=== PATIENT | female | born 1990 | race Caucasian/White ===

== ENCOUNTER 2016-12-23 18:19 | Emergency (ER) | payer OTHER ==
[~2016-12-23] VITALS: Ht 172.7 cm; Wt 64.9 kg
[~2016-12-23 18:19] MED LIST: ENDOCET 5-3251 EACH PO; IBUPROFEN800 MG PO; PRENATAL TABLE1 EACH PO; PROAIR HFA8.5 GM IH; VALTREX50 MG/ML PO
[2016-12-23 20:00] LABS: HEMATOCRIT 37.8 % (36.0-46.0); MCH 27.8 PG (29.0-34.0); MCHC 32.5 G/DL (30.0-36.0); MCV 85.5 FL (83-99); MEAN PLAT.VOLUME 11.6 uM^3 (9.5-12.4); PLATELET COUNT 166 K/uL (156-360); RBC DIS.WIDTH-CV 12.7 % (11.8-14.6); RBC DIS.WIDTH-SD 39.3 % (39-53); RED BLOOD COUNT 4.42 M/uL (3.80-5.20); WHITE BLOOD COUNT 6.3 K/uL (4.1-10.2)
[2016-12-23 20:10] LABS: CHLORIDE 109 mEq/L (99-109); POTASSIUM 4.2 mEq/L (3.7-5.4); SODIUM 140 mEq/L (136-147)
[2016-12-23 20:12] LABS: GLUCOSE 103 mg/dL (70-99)
[2016-12-23 20:14] LABS: ANION GAP 6 MEQ/L (2-14); TOTAL BILIRUBIN 0.2 mg/dL (0.0-1.0)
[2016-12-23 20:16] LABS: ALKALINE PHOSPHATASE 72 IU/L (3-129); GFR ESTIMATE (CALCULATED) > 59 mL/min/
[2016-12-23 20:17] LABS: UREA NITROGEN (BUN) 8 mg/dL (9-23)
[2016-12-23 20:19] LABS: ADD MIUA? YES; BILIRUBIN NEGATIVE; BLOOD SMALL; COLOR STRAW ((YELLOW)); GLUCOSE (STRIP) NEGATIVE; KETONES NEGATIVE; LEUKOCYTES TRACE; NITRITE NEGATIVE; PROTEIN (STRIP) NEGATIVE; SPECIFIC GRAVITY 1.005 (1.000-1.030); UROBILINOGEN 0.2 MG/DL (0.2-1.0)
[2016-12-23 20:22] LABS: BACTERIA RARE /HPF; EPITHELIAL CELLS RARE /HPF; MUCUS TRACE /LPF; RED BLOOD CELLS 0-5 /HPF (0-5); UCUL ADDED? NO; WHITE BLOOD CELLS 0-5 /HPF (0-5)
[2016-12-23 20:23] LABS: TROP-I INTERPRETATION NEGATIVE; TROPONIN-I < 0.01 ng/mL (0.0-0.30)
[2016-12-23 20:29] LABS: QUANTITATIVE HCG < 4.0 MIU/ML
[2016-12-23 23:24] LABS: TROP-I INTERPRETATION NEGATIVE; TROPONIN-I < 0.01 ng/mL (0.0-0.30)
[2016-12-23 23:45] VITALS: BP 118/76
== END 2016-12-23 23:46 | disposition home or self-care (01) ==
LOC: EME 18:19
PROVIDERS: Nurse Practitioner Family
DX: R10.13 Epigastric pain (principal); Z87.891 Personal history of nicotine dependence
CPT/HCPCS: 71020; 80053; 81003; 84484; 84702; 85027; 93005; 99281; 99284

== ENCOUNTER 2016-12-25 19:25 | Emergency (ER) | payer OTHER ==
[~2016-12-25] VITALS: Ht 172.7 cm; Wt 64.0 kg
[2016-12-25] MEDS ORDERED: PROTONIX40 MG PO (19:36)
[2016-12-25] MEDS ORDERED: AMOXICILLIN500 MG PO (19:36)
[2016-12-25 19:56] LABS: HEMATOCRIT 36.1 % (36.0-46.0); MCV 84.9 FL (83-99); MEAN PLAT.VOLUME 11.6 uM^3 (9.5-12.4); PLATELET COUNT 155 K/uL (156-360); RBC DIS.WIDTH-CV 12.8 % (11.8-14.6); RBC DIS.WIDTH-SD 39.9 % (39-53); RED BLOOD COUNT 4.25 M/uL (3.80-5.20)
[2016-12-25 20:20] LABS: TROP-I INTERPRETATION NEGATIVE; TROPONIN-I < 0.01 ng/mL (0.0-0.30)
[2016-12-25 20:25] LABS: D-DIMER ELISA < 150.00 ng/mLDDU (<230)
[2016-12-25 20:37] LABS: CHLORIDE 107 mEq/L (99-109); SODIUM 139 mEq/L (136-147)
[2016-12-25 20:39] LABS: GLUCOSE 92 mg/dL (70-99)
[2016-12-25 20:40] LABS: ANION GAP 9 MEQ/L (2-14)
[2016-12-25 20:43] LABS: GFR ESTIMATE (CALCULATED) > 59 mL/min/
[2016-12-25 20:44] LABS: UREA NITROGEN (BUN) 8 mg/dL (9-23)
[2016-12-25 21:13] VITALS: BP 111/65
== END 2016-12-25 21:16 | disposition home or self-care (01) ==
LOC: EME → EDBD 19:25 → EME 21:16
DX: R07.9 Chest pain, unspecified (principal); F41.9 Anxiety disorder, unspecified; K21.9 Gastro-esophageal reflux disease without esophagitis; Z87.891 Personal history of nicotine dependence
CPT/HCPCS: 80048; 84484; 85027; 85379; 93005; 99281; 99284

== ENCOUNTER 2016-12-28 09:41 | Emergency (ER) | payer OTHER ==
[~2016-12-28] VITALS: Ht 172.7 cm; Wt 61.5 kg
[~2016-12-28 09:41] MED LIST changes: +AMOXICILLIN500 MG PO; +PROTONIX40 MG PO
[2016-12-28 09:43] VITALS: BP 134/77
[2016-12-28 10:57] LABS: BASOPHIL COUNT 0.1 K/uL (0-0.1); EOSINOPHIL (%) 0.6 % (0-5); HEMATOCRIT 37.8 % (36.0-46.0); IMMATURE GRANULOCYTE (%) 0.2 % (0.0-0.7); INSTRUMENT ABS NEUTROPHIL CT 3.2 K/uL; LYMPHOCYTE COUNT 1.4 K/uL (1.0-2.8); MCH 27.7 PG (29.0-34.0); MCHC 32.3 G/DL (30.0-36.0); MCV 85.7 FL (83-99); MEAN PLAT.VOLUME 11.8 uM^3 (9.5-12.4); MONOCYTE (%) 6.4 % (3-12); MONOCYTE COUNT 0.3 K/uL (0-0.8); NEUTROPHIL (%) 63.3 % (45-76); NEUTROPHIL COUNT 3.2 K/uL (1.8-6.4); PLATELET COUNT 170 K/uL (156-360); RBC DIS.WIDTH-CV 12.8 % (11.8-14.6); RBC DIS.WIDTH-SD 39.9 % (39-53); RED BLOOD COUNT 4.41 M/uL (3.80-5.20)
[2016-12-28 11:06] LABS: CHLORIDE 108 mEq/L (99-109); POTASSIUM 3.9 mEq/L (3.7-5.4); SODIUM 141 mEq/L (136-147)
[2016-12-28 11:08] LABS: GLUCOSE 100 mg/dL (70-99)
[2016-12-28 11:09] LABS: ANION GAP 13 MEQ/L (2-14)
[2016-12-28 11:11] LABS: ALKALINE PHOSPHATASE 78 IU/L (3-129); TOTAL BILIRUBIN 0.4 mg/dL (0.0-1.0)
[2016-12-28 11:12] LABS: GFR ESTIMATE (CALCULATED) > 59 mL/min/
[2016-12-28 11:13] LABS: UREA NITROGEN (BUN) 8 mg/dL (9-23)
[2016-12-28 11:15] LABS: LIPASE 16 U/L (1.0-51.0)
[2016-12-28 11:25] LABS: QUANTITATIVE HCG < 4.0 MIU/ML
[2016-12-28] MEDS ORDERED: CLARITIN,ALAVAR10 MG PO (13:01)
[2016-12-28] MEDS ORDERED: GAVISCON ES CH1 EACH PO (13:10)
== END 2016-12-28 13:16 | disposition home or self-care (01) ==
LOC: EME 09:41
PROVIDERS: Physician Assistant
DX: K29.70 Gastritis, unspecified, without bleeding (principal); J30.2 Other seasonal allergic rhinitis; Z87.891 Personal history of nicotine dependence
CPT/HCPCS: 76705; 80053; 83690; 84702; 85025; 99281; 99284

== ENCOUNTER 2017-01-20 20:15 | Emergency (ER) | payer OTHER ==
[~2017-01-20] VITALS: Ht 172.7 cm; Wt 58.8 kg
[~2017-01-20 20:15] MED LIST changes: +CLARITIN,ALAVAR10 MG PO; +GAVISCON ES CH1 EACH PO
[2017-01-20 20:51] LABS: HEMATOCRIT 38.5 % (36.0-46.0); MCH 28.1 PG (29.0-34.0); MCHC 32.7 G/DL (30.0-36.0); MCV 85.7 FL (83-99); RBC DIS.WIDTH-SD 40.2 % (39-53); RED BLOOD COUNT 4.49 M/uL (3.80-5.20); WHITE BLOOD COUNT 6.8 K/uL (4.1-10.2)
[2017-01-20 21:00] LABS: CHLORIDE 108 mEq/L (99-109); POTASSIUM 3.9 mEq/L (3.7-5.4); SODIUM 141 mEq/L (136-147)
[2017-01-20 21:01] LABS: GLUCOSE 91 mg/dL (70-99)
[2017-01-20 21:03] LABS: ANION GAP 10 MEQ/L (2-14)
[2017-01-20 21:05] LABS: GFR ESTIMATE (CALCULATED) > 59 mL/min/
[2017-01-20 21:06] LABS: UREA NITROGEN (BUN) 4 mg/dL (9-23)
[2017-01-20 21:13] LABS: TROP-I INTERPRETATION NEGATIVE; TROPONIN-I < 0.01 ng/mL (0.0-0.30)
[2017-01-20 21:42] LABS: MEAN PLAT.VOLUME 12.3 uM^3 (9.5-12.4); PLAT.SUFFICIENCY ADEQUATE; PLATELET COUNT 179 K/uL (156-360)
[2017-01-21] MEDS ORDERED: NEXIUM 24HR20 M2 PO (00:05)
[2017-01-21 00:12] VITALS: BP 114/70
[2017-01-21] MEDS ORDERED: VENTOLIN HFA18 GM IH (00:16)
[2017-01-21] MEDS ORDERED: ZITHROMAX Z-PA250 MG PO (13:30)
[2017-01-21] MEDS ORDERED: PROVENTIL HFA6.7 GM IH (13:30)
[2017-01-25] MEDS ORDERED: NEXIUM40 MG PO (12:17)
[2017-01-25] MEDS ORDERED: NAPROSYN500 MG PO (12:17)
== END 2017-01-21 00:58 | disposition home or self-care (01) ==
LOC: EME 20:15
PROVIDERS: Physician Assistant
DX: R07.9 Chest pain, unspecified (principal); R06.02 Shortness of breath; K21.9 Gastro-esophageal reflux disease without esophagitis; F41.9 Anxiety disorder, unspecified; Z87.891 Personal history of nicotine dependence
CPT/HCPCS: 71020; 71275; 80048; 84484; 85027; 85379; 93005; 99281; 99285

== ENCOUNTER 2017-01-21 10:27 | Emergency (ER) | payer OTHER ==
[~2017-01-21] VITALS: Ht 172.7 cm; Wt 59.1 kg
[~2017-01-21 10:27] MED LIST changes: +NEXIUM 24HR20 M2 PO; +VENTOLIN HFA18 GM IH
[2017-01-21 11:19] LABS: HEMATOCRIT 37.6 % (36.0-46.0); MCH 28.3 PG (29.0-34.0); MCV 85.8 FL (83-99); MEAN PLAT.VOLUME 12.3 uM^3 (9.5-12.4); PLATELET COUNT 157 K/uL (156-360); RBC DIS.WIDTH-CV 13.1 % (11.8-14.6); RBC DIS.WIDTH-SD 40.8 % (39-53); RED BLOOD COUNT 4.38 M/uL (3.80-5.20); WHITE BLOOD COUNT 5.9 K/uL (4.1-10.2)
[2017-01-21 11:34] LABS: CHLORIDE 110 mEq/L (99-109); POTASSIUM 4.1 mEq/L (3.7-5.4); SODIUM 141 mEq/L (136-147)
[2017-01-21 11:35] LABS: GLUCOSE 91 mg/dL (70-99)
[2017-01-21 11:37] LABS: ANION GAP 8 MEQ/L (2-14)
[2017-01-21 11:39] LABS: GFR ESTIMATE (CALCULATED) > 59 mL/min/
[2017-01-21 11:40] LABS: UREA NITROGEN (BUN) 5 mg/dL (9-23)
[2017-01-21] MEDS ORDERED: PROVENTIL HFA6.7 GM IH (13:30)
[2017-01-21] MEDS ORDERED: ZITHROMAX Z-PA250 MG PO (13:30)
[2017-01-21 13:57] VITALS: BP 122/64
[2017-01-25] MEDS ORDERED: NAPROSYN500 MG PO (12:17)
[2017-01-25] MEDS ORDERED: NEXIUM40 MG PO (12:17)
== END 2017-01-21 13:58 | disposition home or self-care (01) ==
LOC: EME 10:27
DX: J40 Bronchitis, not specified as acute or chronic (principal); R07.89 Other chest pain; Z87.891 Personal history of nicotine dependence
CPT/HCPCS: 71020; 80048; 85027; 94640; 99281; 99284

== ENCOUNTER 2017-01-23 09:46 | Emergency (ER) | payer OTHER ==
[~2017-01-23] VITALS: Ht 172.7 cm; Wt 58.5 kg
[~2017-01-23 09:46] MED LIST changes: +PROVENTIL HFA6.7 GM IH; +ZITHROMAX Z-PA250 MG PO
[2017-01-23] MEDS ORDERED: FLEXERIL10 MG PO (12:02)
[2017-01-23] MEDS ORDERED: NAPROSYN500 MG PO (12:02)
[2017-01-23 12:31] VITALS: BP 106/59
[2017-01-25] MEDS ORDERED: NEXIUM40 MG PO (12:17)
[2017-01-25] MEDS ORDERED: NAPROSYN500 MG PO (12:17)
== END 2017-01-23 12:32 | disposition home or self-care (01) ==
LOC: EME 09:46
DX: N64.52 Nipple discharge (principal); N64.4 Mastodynia; N63.10 Unspecified lump in the right breast, unspecified quadrant; J40 Bronchitis, not specified as acute or chronic; R11.0 Nausea; Z87.891 Personal history of nicotine dependence
CPT/HCPCS: 99281; 99284

== ENCOUNTER 2017-01-27 18:58 | Emergency (ER) | payer OTHER ==
[~2017-01-27] VITALS: Ht 172.7 cm; Wt 58.2 kg
[~2017-01-27 18:58] MED LIST changes: +FLEXERIL10 MG PO; +NAPROSYN500 MG PO; +NEXIUM40 MG PO
[2017-01-27] MEDS ORDERED: MOTRIN600 MG PO (20:33)
[2017-01-27 20:49] VITALS: BP 115/73
== END 2017-01-27 21:09 | disposition home or self-care (01) ==
LOC: EME 18:58
DX: M94.0 Chondrocostal junction syndrome [Tietze] (principal); J45.909 Unspecified asthma, uncomplicated; F41.9 Anxiety disorder, unspecified; Z87.891 Personal history of nicotine dependence
CPT/HCPCS: 71020; 99281; 99283

== ENCOUNTER 2017-02-09 17:02 | Emergency (ER) | payer OTHER ==
[~2017-02-09] VITALS: Ht 172.7 cm; Wt 57.2 kg
[~2017-02-09 17:02] MED LIST changes: +LEVAQUIN500 MG PO; +MOTRIN600 MG PO; +PANTOPRAZOLE SO40 MG PO; +PREDNISONE50 MG PO
[2017-02-09] MEDS ORDERED: TESSALON PERLE100 MG PO (17:35)
[2017-02-09 18:03] VITALS: BP 108/63
== END 2017-02-09 18:04 | disposition home or self-care (01) ==
LOC: EME 17:02
DX: R05 Cough (principal); J98.01 Acute bronchospasm; J02.9 Acute pharyngitis, unspecified; K14.6 Glossodynia; H92.09 Otalgia, unspecified ear; M54.9 Dorsalgia, unspecified; Z87.891 Personal history of nicotine dependence
CPT/HCPCS: 93005

== ENCOUNTER 2017-02-12 11:54 | Emergency (ER) | payer OTHER ==
[~2017-02-12] VITALS: Ht 172.7 cm; Wt 56.9 kg
[~2017-02-12 11:54] MED LIST changes: +TESSALON PERLE100 MG PO
[2017-02-12 12:34] LABS: BASOPHIL COUNT 0.1 K/uL (0-0.1); EOSINOPHIL (%) 0.9 % (0-5); EOSINOPHIL COUNT 0.1 K/uL (0-0.3); HEMATOCRIT 39.2 % (36.0-46.0); IMMATURE GRANULOCYTE (%) 0.1 % (0.0-0.7); INSTRUMENT ABS NEUTROPHIL CT 3.9 K/uL; LYMPHOCYTE COUNT 2.3 K/uL (1.0-2.8); MCH 27.8 PG (29.0-34.0); MCHC 32.7 G/DL (30.0-36.0); MEAN PLAT.VOLUME 11.8 uM^3 (9.5-12.4); MONOCYTE (%) 7.2 % (3-12); MONOCYTE COUNT 0.5 K/uL (0-0.8); NEUTROPHIL (%) 57.2 % (45-76); NEUTROPHIL COUNT 3.9 K/uL (1.8-6.4); PLATELET COUNT 154 K/uL (156-360); RBC DIS.WIDTH-CV 12.8 % (11.8-14.6); RBC DIS.WIDTH-SD 39.6 % (39-53); RED BLOOD COUNT 4.61 M/uL (3.80-5.20); WHITE BLOOD COUNT 6.9 K/uL (4.1-10.2)
[2017-02-12 12:42] LABS: CHLORIDE 107 mEq/L (99-109); POTASSIUM 4.3 mEq/L (3.7-5.4); SODIUM 139 mEq/L (136-147)
[2017-02-12 12:44] LABS: GLUCOSE 92 mg/dL (70-99)
[2017-02-12 12:45] LABS: ANION GAP 6 MEQ/L (2-14)
[2017-02-12 12:47] LABS: GFR ESTIMATE (CALCULATED) > 59 mL/min/
[2017-02-12 12:48] LABS: UREA NITROGEN (BUN) 6 mg/dL (9-23)
[2017-02-12 12:54] LABS: ADD MIUA? YES; BILIRUBIN NEGATIVE; BLOOD NEGATIVE; COLOR STRAW ((YELLOW)); GLUCOSE (STRIP) NEGATIVE; KETONES NEGATIVE; LEUKOCYTES SMALL; NITRITE NEGATIVE; PROTEIN (STRIP) NEGATIVE; SPECIFIC GRAVITY 1.003 (1.000-1.030); UROBILINOGEN 0.2 MG/DL (0.2-1.0)
[2017-02-12 12:57] LABS: QUANTITATIVE HCG < 4.0 MIU/ML
[2017-02-12 13:00] LABS: BACTERIA RARE /HPF; EPITHELIAL CELLS RARE /HPF; MUCUS TRACE /LPF; RED BLOOD CELLS 0-5 /HPF (0-5); UCUL ADDED? NO; WHITE BLOOD CELLS 0-5 /HPF (0-5)
[2017-02-12 16:34] VITALS: BP 111/70
== END 2017-02-12 16:34 | disposition home or self-care (01) ==
LOC: EME 11:54
PROVIDERS: Emergency Medicine
DX: R55 Syncope and collapse (principal); E86.0 Dehydration; R51 Headache; F41.9 Anxiety disorder, unspecified; J45.909 Unspecified asthma, uncomplicated; Z87.891 Personal history of nicotine dependence
CPT/HCPCS: 80048; 81003; 84702; 85025; 99281; 99284; J7030

== ENCOUNTER 2017-02-15 12:50 | Emergency (ER) | payer OTHER ==
[~2017-02-15] VITALS: Ht 172.7 cm; Wt 56.5 kg
[2017-02-15 13:35] LABS: HEMATOCRIT 39.8 % (36.0-46.0); MCH 27.7 PG (29.0-34.0); MCHC 32.4 G/DL (30.0-36.0); MCV 85.6 FL (83-99); MEAN PLAT.VOLUME 11.4 uM^3 (9.5-12.4); PLATELET COUNT 167 K/uL (156-360); RBC DIS.WIDTH-CV 12.9 % (11.8-14.6); RBC DIS.WIDTH-SD 40.2 % (39-53); RED BLOOD COUNT 4.65 M/uL (3.80-5.20); WHITE BLOOD COUNT 6.6 K/uL (4.1-10.2)
[2017-02-15 13:45] LABS: CHLORIDE 107 mEq/L (99-109); POTASSIUM 3.8 mEq/L (3.7-5.4); SODIUM 140 mEq/L (136-147)
[2017-02-15 13:46] LABS: GLUCOSE 100 mg/dL (70-99)
[2017-02-15 13:48] LABS: ANION GAP 9 MEQ/L (2-14)
[2017-02-15 13:50] LABS: GFR ESTIMATE (CALCULATED) > 59 mL/min/
[2017-02-15 13:51] LABS: UREA NITROGEN (BUN) 6 mg/dL (9-23)
[2017-02-15 13:56] LABS: TROP-I INTERPRETATION NEGATIVE; TROPONIN-I < 0.01 ng/mL (0.0-0.30)
[2017-02-15 13:58] LABS: QUANTITATIVE HCG < 4.0 MIU/ML
[2017-02-15] MEDS ORDERED: ATARAX,VISTARIL50 MG PO (14:44)
[2017-02-15 15:04] VITALS: BP 126/75
== END 2017-02-15 15:05 | disposition home or self-care (01) ==
LOC: EME 12:50
PROVIDERS: Physician Assistant Medical
DX: F41.9 Anxiety disorder, unspecified (principal); R07.89 Other chest pain; R06.02 Shortness of breath; Z87.891 Personal history of nicotine dependence
CPT/HCPCS: 71020; 80048; 84484; 84702; 85027; 85379; 93005; 99281; 99284

== ENCOUNTER 2017-02-28 08:42 | Emergency (ER) | payer OTHER ==
[~2017-02-28] VITALS: Ht 172.7 cm; Wt 57.7 kg
[~2017-02-28 08:42] MED LIST changes: +ATARAX,VISTARIL50 MG PO
[2017-02-28 08:56] VITALS: BP 104/58
[2017-02-28 11:50] LABS: BILIRUBIN NEGATIVE; BLOOD NEGATIVE; COLOR YELLOW ((YELLOW)); GLUCOSE (STRIP) NEGATIVE; KETONES NEGATIVE; LEUKOCYTES NEGATIVE; NITRITE NEGATIVE; PROTEIN (STRIP) NEGATIVE; SPECIFIC GRAVITY 1.032 (1.000-1.030); UCUL ADDED? NO; UROBILINOGEN 0.2 MG/DL (0.2-1.0)
[2017-02-28 11:52] LABS: INTERNAL CONTROL VALID? YES
[2017-02-28 11:53] LABS: ADD MIUA? YES
[2017-02-28 12:22] LABS: BACTERIA RARE /HPF; EPITHELIAL CELLS RARE /HPF; MUCUS 4+ /LPF
[2017-02-28] MEDS ORDERED: MOTRIN600 MG PO (13:12)
== END 2017-02-28 13:28 | disposition home or self-care (01) ==
LOC: EME 08:42
PROVIDERS: Emergency Medicine
DX: M54.9 Dorsalgia, unspecified (principal); R11.0 Nausea; N89.8 Other specified noninflammatory disorders of vagina; Z87.891 Personal history of nicotine dependence
CPT/HCPCS: 81003; 84703; 99281; 99283

== ENCOUNTER 2017-07-04 10:37 | Emergency (ER) | payer OTHER ==
[~2017-07-04] VITALS: Ht 172.7 cm; Wt 57.0 kg
[2017-07-04 11:11] LABS: APPEARANCE CLEAR ((CLEAR)); BILIRUBIN NEGATIVE; BLOOD NEGATIVE; COLOR STRAW ((YELLOW)); GLUCOSE (STRIP) NEGATIVE; KETONES NEGATIVE; LEUKOCYTES TRACE; NITRITE NEGATIVE; PROTEIN (STRIP) NEGATIVE; SPECIFIC GRAVITY 1.002 (1.000-1.030); UROBILINOGEN 0.2 MG/DL (0.2-1.0)
[2017-07-04 11:13] LABS: BACTERIA NONE SEEN /HPF; EPITHELIAL CELLS RARE /HPF; MUCUS NONE SEEN /LPF; RED BLOOD CELLS 0-5 /HPF (0-5); UCUL ADDED? NO; WHITE BLOOD CELLS 0-5 /HPF (0-5)
[2017-07-04 11:16] LABS: HEMATOCRIT 36.4 % (36.0-46.0); HEMOGLOBIN 12.1 G/DL (11.9-15.5); MCH 28.2 PG (29.0-34.0); MCHC 33.2 G/DL (30.0-36.0); MCV 84.8 FL (83-99); RBC DIS.WIDTH-CV 13.3 % (11.8-14.6); RBC DIS.WIDTH-SD 41.3 % (39-53); RED BLOOD COUNT 4.29 M/uL (3.80-5.20); WHITE BLOOD COUNT 5.3 K/uL (4.1-10.2)
[2017-07-04 11:25] LABS: ALBUMIN 4.4 g/dL (3.2-4.8); CHLORIDE 107 mEq/L (99-109); POTASSIUM 3.7 mEq/L (3.7-5.4); SODIUM 140 mEq/L (136-147)
[2017-07-04 11:27] LABS: GLUCOSE 92 mg/dL (70-99); TOTAL PROTEIN 7.1 g/dL (6.4-8.3)
[2017-07-04 11:29] LABS: TOTAL BILIRUBIN 0.5 mg/dL (0.0-1.0)
[2017-07-04 11:31] LABS: ALKALINE PHOSPHATASE 64 IU/L (3-129); GFR ESTIMATE (CALCULATED) > 59 mL/min/
[2017-07-04 11:32] LABS: UREA NITROGEN (BUN) 7 mg/dL (9-23)
[2017-07-04 11:33] LABS: AST (GOT) 14 IU/L (2-34)
[2017-07-04 11:34] LABS: ALT (GPT) 10 IU/L (3-49)
[2017-07-04 11:42] LABS: QUANTITATIVE HCG < 4.0 MIU/ML
[2017-07-04 12:02] LABS: PLAT.SUFFICIENCY ADEQUATE; PLATELET COUNT 164 K/uL (156-360)
[2017-07-04] MEDS ORDERED: PROTONIX40 MG PO (12:05)
[2017-07-04 12:18] VITALS: BP 123/54
== END 2017-07-04 12:20 | disposition home or self-care (01) ==
LOC: EME 10:37
DX: K21.9 Gastro-esophageal reflux disease without esophagitis (principal); J45.909 Unspecified asthma, uncomplicated; F41.9 Anxiety disorder, unspecified; Z87.891 Personal history of nicotine dependence; Z98.51 Tubal ligation status; Z88.1 Allergy status to other antibiotic agents
CPT/HCPCS: 80053; 81003; 84702; 85027; 99281; 99283

== ENCOUNTER 2017-07-12 01:36 | Emergency (ER) | payer OTHER ==
[~2017-07-12] VITALS: Ht 172.7 cm; Wt 56.1 kg
[2017-07-12 03:40] LABS: HEMATOCRIT 33.7 % (36.0-46.0); HEMOGLOBIN 11.2 G/DL (11.9-15.5); MCH 28.4 PG (29.0-34.0); MCHC 33.2 G/DL (30.0-36.0); MCV 85.3 FL (83-99); PLATELET COUNT 147 K/uL (156-360); RBC DIS.WIDTH-CV 13.2 % (11.8-14.6); RBC DIS.WIDTH-SD 41.1 % (39-53); RED BLOOD COUNT 3.95 M/uL (3.80-5.20); WHITE BLOOD COUNT 6.2 K/uL (4.1-10.2)
[2017-07-12 03:56] LABS: CHLORIDE 109 mEq/L (99-109); POTASSIUM 3.6 mEq/L (3.7-5.4); SODIUM 142 mEq/L (136-147)
[2017-07-12 03:58] LABS: GLUCOSE 89 mg/dL (70-99)
[2017-07-12 04:02] LABS: CREATININE 0.9 mg/dL (0.6-1.3); GFR ESTIMATE (CALCULATED) > 59 mL/min/
[2017-07-12 04:03] LABS: UREA NITROGEN (BUN) 9 mg/dL (9-23)
[2017-07-12 05:13] LABS: APPEARANCE CLEAR ((CLEAR)); BILIRUBIN NEGATIVE; BLOOD LARGE; COLOR YELLOW ((YELLOW)); GLUCOSE (STRIP) NEGATIVE; KETONES NEGATIVE; LEUKOCYTES NEGATIVE; NITRITE NEGATIVE; PROTEIN (STRIP) NEGATIVE; SPECIFIC GRAVITY 1.009 (1.000-1.030); UROBILINOGEN 0.2 MG/DL (0.2-1.0)
[2017-07-12 05:15] LABS: BACTERIA RARE /HPF; EPITHELIAL CELLS RARE /HPF; MUCUS TRACE /LPF; UCUL ADDED? NO; WHITE BLOOD CELLS 0-5 /HPF (0-5)
[2017-07-12 05:21] VITALS: BP 105/63
== END 2017-07-12 05:24 | disposition home or self-care (01) ==
LOC: EME 01:36
PROVIDERS: Emergency Medicine
DX: S16.1XXA Strain of muscle, fascia and tendon at neck level, initial encounter (principal); X58.XXXA Exposure to other specified factors, initial encounter; R53.1 Weakness; R42 Dizziness and giddiness; R10.30 Lower abdominal pain, unspecified; Z87.891 Personal history of nicotine dependence
CPT/HCPCS: 80048; 81003; 81025; 85027; 99281; 99284

== ENCOUNTER 2017-07-13 09:35 | Emergency (ER) | payer OTHER ==
[~2017-07-13] VITALS: Ht 172.7 cm; Wt 54.2 kg
[2017-07-13 11:30] LABS: HEMATOCRIT 39.4 % (36.0-46.0); HEMOGLOBIN 12.9 G/DL (11.9-15.5); MCH 28.4 PG (29.0-34.0); MCHC 32.7 G/DL (30.0-36.0); MCV 86.6 FL (83-99); RBC DIS.WIDTH-CV 13.5 % (11.8-14.6); RBC DIS.WIDTH-SD 42.4 % (39-53); RED BLOOD COUNT 4.55 M/uL (3.80-5.20); WHITE BLOOD COUNT 5.5 K/uL (4.1-10.2)
[2017-07-13 11:43] LABS: ALBUMIN 4.6 g/dL (3.2-4.8); CHLORIDE 109 mEq/L (99-109); POTASSIUM 3.9 mEq/L (3.7-5.4)
[2017-07-13 11:44] LABS: SODIUM 142 mEq/L (136-147)
[2017-07-13 11:46] LABS: GLUCOSE 95 mg/dL (70-99); TOTAL PROTEIN 7.4 g/dL (6.4-8.3)
[2017-07-13 11:48] LABS: TOTAL BILIRUBIN 0.5 mg/dL (0.0-1.0)
[2017-07-13 11:49] LABS: ALKALINE PHOSPHATASE 70 IU/L (3-129); CREATININE 1.1 mg/dL (0.6-1.3); GFR ESTIMATE (CALCULATED) > 59 mL/min/
[2017-07-13 11:51] LABS: AST (GOT) 14 IU/L (2-34); UREA NITROGEN (BUN) 8 mg/dL (9-23)
[2017-07-13 11:52] LABS: ALT (GPT) 11 IU/L (3-49)
[2017-07-13 12:13] VITALS: BP 108/63
[2017-07-13 12:20] LABS: PLAT.SUFFICIENCY ADEQUATE; PLATELET COUNT 180 K/uL (156-360)
== END 2017-07-13 12:30 | disposition home or self-care (01) ==
LOC: EME 09:35
PROVIDERS: Nurse Practitioner Family
DX: R51 Headache (principal); J06.9 Acute upper respiratory infection, unspecified; F41.9 Anxiety disorder, unspecified; J45.909 Unspecified asthma, uncomplicated; Z87.891 Personal history of nicotine dependence
CPT/HCPCS: 70450; 80053; 85027; 99281; 99284; J1885

== ENCOUNTER 2017-07-20 14:22 | Emergency (ER) | payer OTHER ==
[~2017-07-20] VITALS: Ht 172.7 cm; Wt 54.8 kg
[2017-07-20 14:57] LABS: HEMATOCRIT 38.6 % (36.0-46.0); HEMOGLOBIN 12.9 G/DL (11.9-15.5); MCH 29.1 PG (29.0-34.0); MCHC 33.4 G/DL (30.0-36.0); MCV 86.9 FL (83-99); RBC DIS.WIDTH-CV 13.1 % (11.8-14.6); RBC DIS.WIDTH-SD 41.2 % (39-53); RED BLOOD COUNT 4.44 M/uL (3.80-5.20); WHITE BLOOD COUNT 6.5 K/uL (4.1-10.2)
[2017-07-20 15:08] LABS: ALBUMIN 4.5 g/dL (3.2-4.8); CHLORIDE 105 mEq/L (99-109); POTASSIUM 4.2 mEq/L (3.7-5.4); SODIUM 140 mEq/L (136-147)
[2017-07-20 15:10] LABS: GLUCOSE 94 mg/dL (70-99)
[2017-07-20 15:11] LABS: TOTAL PROTEIN 7.4 g/dL (6.4-8.3)
[2017-07-20 15:12] LABS: TOTAL BILIRUBIN 0.5 mg/dL (0.0-1.0)
[2017-07-20 15:14] LABS: ALKALINE PHOSPHATASE 74 IU/L (3-129); GFR ESTIMATE (CALCULATED) > 59 mL/min/
[2017-07-20 15:15] LABS: UREA NITROGEN (BUN) 6 mg/dL (9-23)
[2017-07-20 15:16] LABS: AST (GOT) 13 IU/L (2-34)
[2017-07-20 15:17] LABS: ALT (GPT) 8 IU/L (3-49)
[2017-07-20 15:24] LABS: QUANTITATIVE HCG < 4.0 MIU/ML
[2017-07-20 15:53] LABS: LIPASE 22 U/L (1.0-51.0)
[2017-07-20 16:16] LABS: APPEARANCE CLEAR ((CLEAR)); BILIRUBIN NEGATIVE; BLOOD NEGATIVE; COLOR YELLOW ((YELLOW)); GLUCOSE (STRIP) NEGATIVE; KETONES NEGATIVE; LEUKOCYTES TRACE; NITRITE NEGATIVE; PROTEIN (STRIP) NEGATIVE; SPECIFIC GRAVITY 1.012 (1.000-1.030); UROBILINOGEN 0.2 MG/DL (0.2-1.0)
[2017-07-20 16:19] LABS: BACTERIA NONE SEEN /HPF; EPITHELIAL CELLS RARE /HPF; MUCUS TRACE /LPF; RED BLOOD CELLS 0-5 /HPF (0-5); UCUL ADDED? NO; WHITE BLOOD CELLS 0-5 /HPF (0-5)
[2017-07-20 16:40] LABS: PLAT.SUFFICIENCY ADEQUATE; PLATELET COUNT 175 K/uL (156-360)
[2017-07-20] MEDS ORDERED: CARAFATE1 GM PO (18:04)
[2017-07-20 18:31] VITALS: BP 108/65
== END 2017-07-20 18:31 | disposition home or self-care (01) ==
LOC: EME 14:22
DX: R10.13 Epigastric pain (principal); J45.909 Unspecified asthma, uncomplicated; F41.9 Anxiety disorder, unspecified; Z87.891 Personal history of nicotine dependence
CPT/HCPCS: 76705; 80053; 81003; 83690; 84702; 85027; 87070; 87210; 99281; 99284

== ENCOUNTER 2017-07-24 03:40 | Emergency (ER) | payer OTHER ==
[~2017-07-24] VITALS: Ht 172.7 cm; Wt 56.6 kg
[~2017-07-24 03:40] MED LIST changes: +CARAFATE1 GM PO
[2017-07-24 03:43] VITALS: BP 117/77
[2017-07-24] MEDS ORDERED: AUGMENTIN875 MG PO (04:34)
== END 2017-07-24 04:55 | disposition home or self-care (01) ==
LOC: EME 03:40
DX: J01.90 Acute sinusitis, unspecified (principal); Z87.891 Personal history of nicotine dependence
CPT/HCPCS: 99281; 99283

== ENCOUNTER 2017-08-06 14:47 | Emergency (ER) | payer OTHER ==
[~2017-08-06] VITALS: Ht 172.7 cm; Wt 54.5 kg
[~2017-08-06 14:47] MED LIST changes: +AUGMENTIN875 MG PO
[2017-08-06 14:55] VITALS: BP 109/59
[2017-08-06] MEDS ORDERED: DEBROX15 ML RIGHT EAR (15:58)
[2017-08-06] MEDS ORDERED: FLEXERIL5 MG PO (15:58)
== END 2017-08-06 16:01 | disposition home or self-care (01) ==
LOC: EME 14:47
DX: H61.21 Impacted cerumen, right ear (principal); M54.2 Cervicalgia; J34.2 Deviated nasal septum; Z88.1 Allergy status to other antibiotic agents

== ENCOUNTER 2017-08-21 13:05 | Emergency (ER) | payer OTHER ==
[~2017-08-21] VITALS: Ht 172.7 cm; Wt 56.0 kg
[~2017-08-21 13:05] MED LIST changes: +DEBROX15 ML RIGHT EAR; +FLEXERIL5 MG PO
[2017-08-21] MEDS ORDERED: FLEXERIL10 MG PO (14:24)
[2017-08-21] MEDS ORDERED: LIDODERM 5% P1 PATCH TD (14:24)
[2017-08-21 14:30] VITALS: BP 99/67
== END 2017-08-21 14:31 | disposition home or self-care (01) ==
LOC: EME 13:05 → RME 13:05
DX: J06.9 Acute upper respiratory infection, unspecified (principal); J30.2 Other seasonal allergic rhinitis; M62.838 Other muscle spasm; Z87.891 Personal history of nicotine dependence; Z88.1 Allergy status to other antibiotic agents; Z88.8 Allergy status to other drugs, medicaments and biological substances
CPT/HCPCS: 99281; 99285

== ENCOUNTER 2017-09-06 15:44 | Emergency (ER) | payer OTHER ==
[~2017-09-06] VITALS: Ht 172.7 cm; Wt 54.1 kg
[~2017-09-06 15:44] MED LIST changes: +LIDODERM 5% P1 PATCH TD
[2017-09-06] MEDS ORDERED: AUGMENTIN875 MG PO (16:25)
[2017-09-06 16:46] VITALS: BP 104/70
== END 2017-09-06 16:50 | disposition home or self-care (01) ==
LOC: EME 15:44
DX: J01.90 Acute sinusitis, unspecified (principal); J45.909 Unspecified asthma, uncomplicated; J34.2 Deviated nasal septum; F41.9 Anxiety disorder, unspecified; Z87.891 Personal history of nicotine dependence; Z88.1 Allergy status to other antibiotic agents
CPT/HCPCS: 99281; 99284; J8540

== ENCOUNTER 2017-09-24 11:59 | Emergency (ER) | payer OTHER ==
[~2017-09-24] VITALS: Ht 172.7 cm; Wt 54.2 kg
[2017-09-24 12:50] LABS: APPEARANCE CLEAR ((CLEAR)); BILIRUBIN NEGATIVE; BLOOD LARGE; COLOR YELLOW ((YELLOW)); GLUCOSE (STRIP) NEGATIVE; KETONES NEGATIVE; LEUKOCYTES NEGATIVE; NITRITE NEGATIVE; PROTEIN (STRIP) 30; SPECIFIC GRAVITY 1.003 (1.000-1.030); UROBILINOGEN 0.2 MG/DL (0.2-1.0)
[2017-09-24 13:00] LABS: BACTERIA RARE /HPF; EPITHELIAL CELLS RARE /HPF; MUCUS TRACE /LPF; RED BLOOD CELLS TNTC /HPF (0-5); UCUL ADDED? YES
[2017-09-24] MEDS ORDERED: MACROBID100 MG PO (13:36)
[2017-09-24] MEDS ORDERED: GUAIFENESIN600 M1 PO (13:37)
[2017-09-24 14:04] VITALS: BP 112/75
== END 2017-09-24 14:07 | disposition home or self-care (01) ==
LOC: EME 11:59
PROVIDERS: Nurse Practitioner Family
DX: N39.0 Urinary tract infection, site not specified (principal); R51 Headache; J30.2 Other seasonal allergic rhinitis; R11.2 Nausea with vomiting, unspecified; Z87.891 Personal history of nicotine dependence
CPT/HCPCS: 81003; 81025; 87086; 99281; 99284